=== PATIENT | female | born 1950 | race Caucasian/White ===

== ENCOUNTER → 2018-03-11 | Outpatient (CLI) | payer MEDICARE, OTHER ==
[2015-03-13 11:42] VITALS: BMI 30.7
[~2018-03-11] MED LIST: ASPI-715 PO; CHOL200025 PO; DOC100 PO; DOCU-416 PO; ERG400 PO; EZET10TA41 PO; FES4PT PO; FESO8PT PO; IBU200 PO; KRIL1CAP22 PO; LEV500 PO; LISI-355 PO; LOR5 PO; METH1TAB65 PO; MULT-1335 PO; MULT-989 PO; NITR-105 PO; OXYB10TA21 PO; OXYC-865 PO; PHEN200T32 PO; PHENA200 PO; PNEI IM; PNEU0.5D3 IM; PRA20 PO; PRAV40TA77 PO; SULF-198 PO; TOLT4CAP13 PO; UBID100C48 PO; VITE400 PO; [UNRECOGNIZED DRUG - CODE] PO; mega red PO
== END ==
LOC: LAB 09:31
PROVIDERS: ATTEND Nurse Practitioner Family
DX: R73.01 Impaired fasting glucose (principal)
CPT/HCPCS: 36415; 83036

== ENCOUNTER → 2019-04-29 | Outpatient (CLI) | payer MEDICARE, OTHER ==
[2015-03-13 11:42] VITALS: BMI 30.7
[~2019-04-29] MED LIST changes: +FLAX100029 PO; +PNEI IJ; +ROSU10TA5 PO; +TRIA15CR40 TP; -[UNRECOGNIZED DRUG - CODE] PO
--- NOTE | 2019-04-29 09:56 | RADIOLOGY IMAGING REPORT ---
FACILITY: [facility] - [place] PATIENT NAME: Ramona Branch : 1950 MR: [id number] V: [id number] EXAM DATE: ORDERING PHYSICIAN: PELON EDWARDS TECHNOLOGIST: [place] [facility] [place] : 1950 Visit/Account:[id number] Date of Sevice: 04/29/2019 DEXA Scan Clinical history: Asymptomatic postmenopausal state, history of kidney cancer. Comparison: DEXA scan from 07/19/2014. LUMBAR SPINE: The bone mineral density (BMD) measured from L1-L4 correlates with a Z-score of 0.2 and a T-score of -0.4 which is Normal as defined by the World Health Organization. The corresponding risk of fracture in the lumbar spine is Not increased compared with a young adult reference population. This value h as decrease by 1.1 % since the prior study. More than 5% change is considered significant. HIP: Bone mineral density (BMD) measured in the LEFT total hip region correlates with a Z-score -0.4 and a T-score of -1.1 which is osteopenia as defined by the World Health Organization. The corresponding risk of fracture in the hip is 2-3 times increased compared to a young adult reference population. Th is value has decrease by 5.1 % since the prior study. More than 5% change is considered significant. T score left femoral neck -0.9 Bone mineral density (BMD) measured in the Femoral Neck region measures 0.913 g/cm?. IMPRESSION: 1. Lumbar spine: Normal. There has been 1.1% decrease in the bone mineral density since the previou s exam. 2. Left Total Hip: Osteopenia. There has been 5.1% decrease in the bone mineral density since the p revious exam. 3. Femoral Neck: Bone Mineral Density is 0.913 g/cm? The next DEXA scan of this patient should include the following sites: L1-L4 and the left hip. FRAX? WHO Fracture Risk Assessment Tool link: <http://www.shef.ac.uk/FRAX/tool.jsp?locationValue=9> PLEASE NOTE: 1) The World Health Organization defines low BMD as follows: T-score Normal > -1 Osteopenia < -1 and > -2.5 Osteoporosis < -2.5 without fractures Established osteoporosis < -2.5 with fractures 2) In general, you may wish to consider: Diagnosis Treatment Follow-up DEXA Normal BMD Prevention 2-3 years Osteopenia Prevention/therapy 1-2 years Osteoporosis Therapy Yearly 3) Fracture risk estimated from the T-score is more accurate for vertebral fractures (often spontane ous) than for hip fractures. Report Dictated By: Mayelin Núñez MD at 04/29/2019 8:58 AM Report E-Signed By: Mayelin Núñez MD at 04/29/2019 9:50 AM TERRENCEN:PRINCESSVSarah
--- NOTE | 2019-04-29 15:19 | RADIOLOGY IMAGING REPORT ---
FACILITY: [facility] PATIENT NAME: STEPHEN BREEN : [id number] MR: [id number] V: [id number] EXAM DATE: [id number] ORDERING PHYSICIAN: PELON EDWARDS TECHNOLOGIST: Shirley Roche PROCEDURE: BILATERAL DIGITAL SCREENING MAMMOGRAM WITH CAD ASSISTED INTERPRETATION & 3D TOMOSYNTHESIS REASON FOR STUDY: Screening FAMILY HISTORY OF BREAST CANCER: None BREAST PROCEDURES/TREATMENTS: Benign surgical biopsy in the Left breast COMPARISON: 05/12/17, 07/19/14, 05/20/12 VIEWS OBTAINED: Bilateral 2D & 3D full field CC & MLO projections BREAST DENSITY: There are scattered areas of fibroglandular density throughout the breasts. MAMMOGRAM FINDINGS: The parenchymal pattern has remained stable allowing for difference in mammographic technique & patient positioning. IMPRESSION: BIRADS 1: Negative. DIAGNOSTIC CATEGORY 1--NEGATIVE. RECOMMENDATIONS: ROUTINE MAMMOGRAM AND CLINICAL EVALUATION. Dictated by: Mayelin Núñez M.D. on 04/29/2019 at 10:05 Transcribed by: GERARDO on 04/29/2019 at 11:03 Approved by: Mayelin Núñez M.D. on 04/29/2019 at 15:18 [facility]
== END ==
LOC: MAMO 02:08
PROVIDERS: ATTEND Nurse Practitioner Family
DX: Z12.31 Encounter for screening mammogram for malignant neoplasm of breast (principal); M85.852 Other specified disorders of bone density and structure, left thigh
CPT/HCPCS: 77063; 77067; 77080

== ENCOUNTER 2019-05-06 00:31 | Day surgery (SDC) | payer MEDICARE, OTHER ==
[2015-03-13 11:42] VITALS: Ht 165.1 cm; Wt 94.8 kg
[~2019-05-06] VITALS: Ht 165.1 cm; Wt 94.8 kg
[2019-05-06] MEDS ORDERED: PROPOFOL EMUL(*) 10MG/ML 20 ML 20 ML ONE (07:12)
[2019-05-06 08:00] VITALS: BP 122/85
[2019-05-06] MEDS ORDERED: NORMOSOL R SOLN(*) 1000 ML BAG 1,000 ML IV PRN (09:05)
[2019-05-06] MEDS ORDERED: LIDOCAINE/SOD BICARB 8.4% SYR ID ONE (09:05)
[2019-05-06 09:56] VITALS: BP 130/78
--- NOTE | 2019-05-06 10:03 | Short(Outpt) Discharge Summary ---
Discharge Summary Reason for Hosp/Final Diag: (1) Encounter for screening colonoscopy Hospital Course & Plan: pt presented for colonoscopy. she tolerated the procedure well. she will be discharged home when criteria met. Discharge Instructions Home Meds Active Scripts Rosuvastatin Calcium (Rosuvastatin Calcium) 10 Mg Tablet, 1 TAB PO DAILY, #90 TAB 1 Refill Prov:PELON EDWARDS APRN MEDICAL PRACTICE ADMINISTRATOR-C 03/21/19 Lisinopril/Hydrochlorothiazide (LISINOPRIL-HCTZ 20-25 MG TAB) 1 Each Tablet, 1 TAB PO DAILY, #90 TAB 1 Refill Prov:PELON EDWARDS APRN MEDICAL PRACTICE ADMINISTRATOR-C 03/21/19 Triamcinolone Acetonide 0.1% Cr 15 Gm Tube (TRIAMCINOLONE ACETONIDE 0.1% CREAM) 15 Gm Cream..g., 1 TESSA TP BID for 14 Days, #30 GM 0 Refills Prov:PELON EDWARDS APRN MEDICAL PRACTICE ADMINISTRATOR-C 03/21/19 Reported Medications Multivitamins-Min/Fa/Ginkgo (ONE DAILY FOR WOMEN 50+ ADV TB) 1 Each Tablet, 1 TAB PO DAILY 03/02/17 Ubidecarenone (COQ-10) 100 Mg Capsule, 1 CAP PO DAILY, CAPSULE 03/02/17 Cholecalciferol (Vitamin D3) (VITAMIN D3) 2,000 Unit Capsule, 1 CAP PO DAILY, CAPSULE 03/02/17 Flaxseed Oil (FLAXSEED OIL) 1,000 Mg Capsule, 1300 MG PO DAILY, CAPSULE 03/02/17 Krill/Om-3/Dha/Epa/Phospho/Ast (Megared [place]-3 Krill Oil Sfgl) 1 Each Capsule, 1 CAP PO DAILY 03/02/17 Diet: Regular Activity: As Tolerated Special Instructions: we will call you in 10 days with biopsy results. KHADRA WIN May 06, 2019 10:03
[2019-05-06 10:15] VITALS: BP 127/78
[2019-05-06 10:31] VITALS: BP 130/90
[2019-05-06 10:33] VITALS: BP 128/94
== END 2019-05-06 10:52 | disposition home or self-care (01) ==
LOC: OR 00:31
PROVIDERS: ATTEND Surgery
DX: Z12.11 Encounter for screening for malignant neoplasm of colon (principal); K63.5 Polyp of colon
CPT/HCPCS: 00811; 45380; 88305; J2704